=== PATIENT | male | born 1975 | race Caucasian/White ===

== ENCOUNTER 2020-12-16 12:40 | Emergency (ER) | payer OTHER ==
[~2020-12-16] VITALS: Ht 182.9 cm; Wt 80.5 kg
[2020-12-16 12:40] VITALS: BP 116/72
[2020-12-16] MEDS ORDERED: KETOROLAC 30 MG/ML 1ML VIAL IM ONE (15:15)
[2020-12-16] MEDS ORDERED: LIDOCAINE 5% (LIDODERM) PATCH TD ONE (15:20)
[2020-12-16] MEDS ORDERED: LIDO5DIS41 TOP (15:32)
[2020-12-16] MEDS ORDERED: METH-1164 PO (15:32)
[2020-12-16] MEDS ORDERED: **NOTE PATIENT COMMENT** MISC XX SCH (21:00)
== END 2020-12-16 15:54 | disposition home or self-care (01) ==
LOC: M ED 12:40
DX: S39.012A Strain of muscle, fascia and tendon of lower back, initial encounter (principal); X50.9XXA Other and unspecified overexertion or strenuous movements or postures, initial encounter; Y92.89 Other specified places as the place of occurrence of the external cause; Y93.B3 Activity, free weights; Y99.8 Other external cause status; M54.9 Dorsalgia, unspecified; G89.29 Other chronic pain; F17.200 Nicotine dependence, unspecified, uncomplicated; Z85.72 Personal history of non-Hodgkin lymphomas
CPT/HCPCS: 96372; 99282; J1885

== ENCOUNTER → 2021-06-12 | Outpatient (CLI) | payer OTHER ==
[~2021-06-12] MED LIST: LIDO5DIS41 TOP; METH-1164 PO
== END ==
LOC: M PLAIMG 11:26
PROVIDERS: ATTEND Nurse Practitioner
DX: M54.31 Sciatica, right side (principal); M51.26 Other intervertebral disc displacement, lumbar region

== ENCOUNTER → 2021-09-05 | Outpatient (CLI) | payer OTHER | LOC: M RAD 10:48 | PROVIDERS: ATTEND Physical Medicine & Rehabilitation | DX: M51.36 Other intervertebral disc degeneration, lumbar region (principal) | CPT/HCPCS: 78306; A9503 ==

== ENCOUNTER → 2021-12-08 | Outpatient (CLI) | payer OTHER ==
[~2021-12-08] MED LIST changes: +GABA-282
== END ==
LOC: M PLARAD 12:31
PROVIDERS: ATTEND Internal Medicine Hematology & Oncology
DX: C85.98 Non-Hodgkin lymphoma, unspecified, lymph nodes of multiple sites (principal)
CPT/HCPCS: 78815; A9552

== ENCOUNTER → 2022-02-16 | Outpatient (CLI) | payer OTHER ==
[~2022-02-16] MED LIST changes: +GASTROGRAFIN SOLUTION 30ML (Q9963) As Ordered ONE; +ISOVUE-370 76% 100ML VIAL As Ordered ONE
== END ==
LOC: M RAD 08:02
PROVIDERS: ATTEND Internal Medicine Medical Oncology
DX: C82.33 Follicular lymphoma grade IIIa, intra-abdominal lymph nodes (principal); N28.9 Disorder of kidney and ureter, unspecified; J43.9 Emphysema, unspecified; K44.9 Diaphragmatic hernia without obstruction or gangrene
CPT/HCPCS: 71260; 74177; Q9963; Q9967

== ENCOUNTER 2022-04-08 16:22 | Emergency (ER) | payer OTHER ==
[~2022-04-08] VITALS: Ht 188 cm; Wt 78.2 kg
[~2022-04-08 16:22] MED LIST changes: -GASTROGRAFIN SOLUTION 30ML (Q9963) As Ordered ONE; -ISOVUE-370 76% 100ML VIAL As Ordered ONE
[2022-04-08 16:23] VITALS: BP 122/72
[2022-04-08] MEDS ORDERED: IBUP200T46 PO (16:33)
[2022-04-08] MEDS ORDERED: GABA800T4 (16:33)
[2022-04-08] MEDS ORDERED: CELE1CAP7 (16:33)
== END 2022-04-08 18:29 | disposition home or self-care (01) ==
LOC: M ED 16:22
DX: S62.52 Fracture of distal phalanx of thumb (principal); S90.212A Contusion of left great toe with damage to nail, initial encounter; W20.8XXA Other cause of strike by thrown, projected or falling object, initial encounter; Y92.9 Unspecified place or not applicable; Y93.89 Activity, other specified; Y99.0 Civilian activity done for income or pay

== ENCOUNTER → 2022-06-15 | Outpatient (CLI) | payer OTHER ==
[~2022-06-15] MED LIST changes: +CELE1CAP7; +GABA800T4; +IBUP200T46 PO
== END ==
LOC: M PLARAD 08:50
PROVIDERS: ATTEND Internal Medicine Hematology & Oncology
DX: C85.98 Non-Hodgkin lymphoma, unspecified, lymph nodes of multiple sites (principal)
CPT/HCPCS: 78815; A9552

== ENCOUNTER → 2024-09-01 | Outpatient (REF) ==
[~2024-09-01] MED LIST changes: -CELE1CAP7; +CELE1CAP99; +FERR325T3 PO; +GABA-1172; +GABA-1635; -GABA-282; -GABA800T4; +METH-1164; +OXYC-517
== END ==
LOC: M PLAIMG 11:12
PROVIDERS: ATTEND Internal Medicine
DX: M54.50 Low back pain, unspecified (principal)